=== PATIENT | female | born 1985 | race Caucasian/White ===

== ENCOUNTER 2017-03-20 10:59 | Emergency (ER) | payer OTHER ==
[2017-03-20 11:04] VITALS: BP 156/90; PULSE 104; RESP 18; TEMP 97.7; O2SAT 99
[2017-03-20] MEDS ORDERED: ACETAMINOPHEN 325 MG TAB PO ONE (11:40)
[2017-03-20] MEDS ORDERED: KETOROLAC 15 MG/1 ML SDV IVP ONE (11:40)
[2017-03-20] MEDS ORDERED: LORazepam 2 MG/ML INJ IVP ONE (11:40)
[2017-03-20] MEDS ORDERED: PROMETHAZINE HCL 25 MG/ML INJ IVP ONE (11:41)
[2017-03-20 11:58] LABS: ANION GAP 12 mEq/L (8-16); CALCIUM 10.3 mg/dL (8.5-10.4); CARBON DIOXIDE 19 mEq/l (22-31); CHLORIDE 102 mEq/L (97-110); CREATININE 0.9 mg/dL (0.6-1.0); GLOMERULAR FILTRATION RATE > 60; GLUCOSE 108 mg/dL (70-100); POTASSIUM 4.2 mEq/L (3.5-5.2); SODIUM 133 mEq/L (134-144)
[2017-03-20 11:59] LABS: % IMMATURE GRANULYOCYTES 0.3 % (0.0-1.1); ABSOLUTE IMMATURE GRANULOCYTES 0.02 10^3/uL (0.00-0.10); ADD DIFF? NO; ADD MORPH? NO; ADD SCAN? NO; ATYPICAL LYMPHOCYTE FLAG 20 (0-99); FRAGMENT RBC FLAG 0 (0-99); HEMATOCRIT 42.6 % (38.0-47.0); HEMOGLOBIN 14.7 g/dL (12.6-16.3); LEFT SHIFT FLG 0 (0-99); LIPEMIA HEMOLYSIS FLAG 90 (0-99); MEAN CELL HEMOGLOBIN CONCENTR. 34.5 g/dL (32.4-36.7); MEAN CELL VOLUME 92.8 fL (81.5-99.8); MEAN PLATELET VOLUME 9.7 fL (8.7-11.7); PLATELET CLUMPS FLAG 0 (0-99); PLATELET COUNT 395 10^3/uL (150-400); RED BLOOD CELL COUNT 4.59 10^6/uL (4.18-5.33); RED CELL DISTRIBUTION WIDTH 12.6 % (11.5-15.2)
--- NOTE | 2017-03-20 12:07 | EDPHY ---
H & P Stated Complaint: Migraine x 1 hr; feel numb "all over";+photophobia Time Seen by Provider: 03/20/17 11:12 HPI/ROS: CHIEF COMPLAINT: Anxiety HISTORY OF PRESENT ILLNESS: 31-year-old female presents emergency department with her who reports she is unsure she is having a migraine an anxiety attack. Patient reports a history of migraines that are induced by stress. She reports an aura that is usually one-sided with we vision and numbness to one side of the body that is followed by a headache. Patient states she takes Aleve and sleeps in her symptoms are resolved. She and her report multiple increased stressors with moving, studying, their current living situation. She was at home on the computer when she started laughing uncontrollably which was followed by hyperventilation, lip numbness and bilateral hand numbness. She reports she feels like she wants to crawl out of her skin. She denies headache or confusion. She says this feels similar to previous migraine auras aside that these symptoms are bilateral and she feels more anxious. Pt denies chest pain or shortness of breath. No recent cough or cold. No abdominal pain, chest pain or shortness of breath. REVIEW OF SYSTEMS: A comprehensive 10 point review of systems is otherwise negative aside from elements mentioned in the history of present illness. Source: Patient Exam Limitations: No limitations - Personal History LMP (Females 10-55): 15-21 Days Ago Current Tetanus Diphtheria and Acellular Pertussis (TDAP): Yes - Medical/Surgical History Other PMH: migraines - Social History Smoking Status: Never smoked Alcohol Use: Rarely Drug Use: None - Physical Exam Exam: Physical Exam Gen: Alert and Oriented, tearful HEENT: PERRL, moist mucous membranes NECK: no meningismus CV: regular rate and regular rhythm PULM: CTAB, no wheezes ABDOMEN: soft, non tender to palpation, BS present BACK: No CVA tenderness NEURO: Neurologically grossly intact, normal cerebellar exam EXTREMITIES: normal appearing SKIN: no rash or break in skin on exposed skin PSYCH: answers questions appropriately, tearful, anxious. Constitutional: Initial Vital Signs Temperature (C) 36.5 C 03/20/17 11:02 Heart Rate 104 H 03/20/17 11:02 Respiratory Rate 18 03/20/17 11:02 Blood Pressure 156/90 H 03/20/17 11:02 O2 Sat (%) 99 03/20/17 11:02 O2 Delivery Mode Room Air Allergies/Adverse Reactions: No Known Allergies Allergy (Unverified 03/20/17 11:01) Home Medications: Medication Instructions Recorded NK [No Known Home Meds] 03/20/17 Medical Decision Making ED Course/Re-evaluation: IV established, CBC and chemistry panel obtained, I spoke with the patient about anxiety versus migraine symptoms and we have decided to treat her with a migraine cocktail and 1mg of IV lorazepam. 1200pm- Nurse went into room to administer the medications and the patient reports she is feeling much better. She is requesting to be discharged and is refusing any medications. Pt reports she thinks all of her symptoms are related to a panic attack. Pt has a normal neuro exam. She reports her hand and lip numbness have resolved. I am comfortable discharging her home. She is given return precautions for worsening symptoms, new symptoms or concerns. Differential Diagnosis: Diagnosis considered but not limited to migraine with aura, anxiety, cva, medication reaction, stress reaction. - Data Points Laboratory Results: Laboratory Results 03/20/17 11:10 03/20/17 11:10 03/20/17 03/20/17 03/20/17 11:10 11:10 11:10 WBC 7.58 10^3/uL 10^3/uL (3.80-9.50) RBC 4.59 10^6/uL 10^6/uL (4.18-5.33) Hgb 14.7 g/dL g/dL (12.6-16.3) Hct 42.6 % % (38.0-47.0) MCV 92.8 fL fL (81.5-99.8) MCH 32.0 pg pg (27.9-34.1) MCHC 34.5 g/dL g/dL (32.4-36.7) RDW 12.6 % % (11.5-15.2) Plt Count 395 10^3/uL 10^3/uL (150-400) MPV 9.7 fL fL (8.7-11.7) Neut % (Auto) 61.4 % % (39.3-74.2) Lymph % (Auto) 29.3 % % (15.0-45.0) [place] % (Auto) 6.3 % % (4.5-13.0) Eos % (Auto) 1.8 % % (0.6-7.6) Baso % (Auto) 0.9 % % (0.3-1.7) Nucleat RBC Rel Count 0.0 % % (0.0-0.2) Absolute Neuts (auto) 4.65 10^3/uL 10^3/uL (1.70-6.50) Absolute Lymphs (auto) 2.22 10^3/uL 10^3/uL (1.00-3.00) Absolute Monos (auto) 0.48 10^3/uL 10^3/uL (0.30-0.80) Absolute Eos (auto) 0.14 10^3/uL 10^3/uL (0.03-0.40) Absolute Basos (auto) 0.07 10^3/uL 10^3/uL (0.02-0.10) Absolute Nucleated RBC 0.00 10^3/uL 10^3/uL (0-0.01) Immature Gran % 0.3 % % (0.0-1.1) Immature Gran # 0.02 10^3/uL 10^3/uL (0.00-0.10) Sodium 133 mEq/L L mEq/L (134-144) Potassium 4.2 mEq/L mEq/L (3.5-5.2) Chloride 102 mEq/L mEq/L (97-110) Carbon Dioxide 19 mEq/l L mEq/l (22-31) Anion Gap 12 mEq/L mEq/L (8-16) BUN 14 mg/dL mg/dL (7-23) Creatinine 0.9 mg/dL mg/dL (0.6-1.0) Estimated GFR > 60 Glucose 108 mg/dL H mg/dL (70-100) Calcium 10.3 mg/dL mg/dL (8.5-10.4) Beta HCG, Qual NEGATIVE Medications Given: Discontinued Medications Acetaminophen (Tylenol) 650 mg PO EDNOW ONE Stop: 03/20/17 11:41 Last Admin: 03/20/17 11:57 Dose: Not Given Diphenhydramine HCl (Benadryl Injection) 25 mg IVP EDNOW ONE Stop: 03/20/17 11:42 Last Admin: 03/20/17 11:57 Dose: Not Given Ketorolac Tromethamine (Toradol) 15 mg IVP EDNOW ONE Stop: 03/20/17 11:41 Last Admin: 03/20/17 11:57 Dose: Not Given Lorazepam (Ativan Injection) 1 mg IVP EDNOW ONE Stop: 03/20/17 11:41 Last Admin: 03/20/17 11:57 Dose: Not Given Promethazine HCl (Phenergan) 12.5 mg IVP EDNOW ONE Stop: 03/20/17 11:42 Last Admin: 03/20/17 11:57 Dose: Not Given Departure - Departure Disposition: Home, Routine, Self-Care Clinical Impression: Anxiety as acute reaction to gross stress Condition: Good Instructions: Anxiety (ED) Additional Instructions: Return to the emergency department for any worsening symptoms, new symptoms or concerns. Referrals: [facility],. [Clinic] - Follow Up Only If Needed
== END 2017-03-20 12:13 | disposition home or self-care (01) ==
DX: F43.0 Acute stress reaction (principal)
CPT/HCPCS: J1200; J1885; J2060; J2550